=== PATIENT | female | born 1980 | race Caucasian/White ===

== ENCOUNTER → 2019-03-22 | Outpatient (CLI) | payer OTHER ==
--- NOTE | 2019-03-25 13:19 | MM ---
Reason for exam: screening (asymptomatic). Last mammogram was performed 6 years and 5 months ago. History: Family history of breast cancer in maternal cousin at age 42. Saline implants in both breasts, 2001. Physical Findings: A clinical breast exam by your physician is recommended on an annual basis and results should be correlated with mammographic findings. MG Screening Mammo Implant/CAD Bilateral CC, MLO, and ID view(s) were taken. Prior study comparison: October 30, 2012, CAD bilateral diagnostic mammogram. November 19, 2010, CAD bilateral diagnostic mammogram. The breast tissue is heterogeneously dense. This may lower the sensitivity of mammography. Bilateral retropectoral silicone implants. No significant changes when compared with prior studies. ASSESSMENT: Negative, BI-RAD 1 RECOMMENDATION: Routine screening mammogram of both breasts in 1 year.
== END | disposition home or self-care (01) ==
LOC: RADMAMWWP 15:21
PROVIDERS: ATTEND Obstetrics & Gynecology
DX: Z12.31 Encounter for screening mammogram for malignant neoplasm of breast (principal)
CPT/HCPCS: 77067

== ENCOUNTER → 2020-09-04 | Outpatient (CLI) | payer OTHER ==
--- NOTE | 2020-09-08 09:02 | MM ---
Reason for exam: screening (asymptomatic). Last mammogram was performed 1 year and 5 months ago. History: Family history of breast cancer in maternal cousin at age 42. Saline implants in both breasts, 2001. Physical Findings: A clinical breast exam by your physician is recommended on an annual basis and results should be correlated with mammographic findings. MG Screening Mammo Implant/CAD Bilateral CC, MLO, and ID view(s) were taken. Prior study comparison: March 22, 2019, bilateral MG screening mammo implant/CAD. There are scattered fibroglandular densities. Retropectoral saline implants. No significant changes when compared with prior studies. ASSESSMENT: Negative, BI-RAD 1 RECOMMENDATION: Routine screening mammogram of both breasts in 1 year.
== END | disposition home or self-care (01) ==
LOC: RADMAMWWP 13:42
PROVIDERS: ATTEND Obstetrics & Gynecology
DX: Z12.31 Encounter for screening mammogram for malignant neoplasm of breast (principal)
CPT/HCPCS: 77067

== ENCOUNTER → 2022-02-09 | Outpatient (CLI) | payer OTHER ==
--- NOTE | 2022-02-10 09:05 | MM ---
Reason for Exam: Screening (asymptomatic). Last mammogram was performed 1 year(s) and 6 month(s) ago. Patient History: Menarche at age 11. First Full-Term at age 17. 2001, Bilateral Implants. Maternal cousin had breast cancer, age 42. Last menstrual period: 01/27/2022 Risk Values: Ayala 5 year model risk: 0.5%. NCI Lifetime model risk: 7.2%. Prior Study Comparison: 10/30/2012 Bilateral Diagnostic Mammogram, [facility]. 03/22/2019 Bilateral Screening Mammogram, [facility]. 09/04/2020 Bilateral Screening Mammogram, [facility]. Tissue Density: There are scattered fibroglandular densities. Findings: Analyzed By CAD. There is no suspicious group of microcalcifications or new suspicious mass in either breast. Retropectoral saline implants redemonstrated. No significant change from prior examinations. Overall Assessment: Negative, BI-RAD 1 Management: Screening Mammogram of both breasts in 1 year. A clinical breast exam by your physician is recommended on an annual basis and results should be correlated with mammographic findings. Electronically signed and approved by: Jesus Whitley D.O.
== END | disposition home or self-care (01) ==
LOC: RADMAMWWP 12:08
PROVIDERS: ATTEND Obstetrics & Gynecology
DX: Z12.31 Encounter for screening mammogram for malignant neoplasm of breast (principal); Z80.3 Family history of malignant neoplasm of breast
CPT/HCPCS: 77063; 77067

== ENCOUNTER → 2023-08-04 | Outpatient (CLI) | payer OTHER ==
--- NOTE | 2023-08-04 16:14 | US ---
EXAMINATION TYPE: US pelvis complete transvag DATE OF EXAM: 08/04/2023 COMPARISON: NONE CLINICAL INDICATION: Female, 43 years old with history of Z12.31 SCR MAMMO N92.0 EXCESSIVE MENSTRUATI ON; Patient states she is getting an ablation soon. Patient has had heavy bleeding on her period x 13 days. . TECHNIQUE: Transvaginal (TV) and Transabdominal (TA) . Transabdominal sonographic images of the pel vis were acquired. Transvaginal sonographic images were medically necessary to better assess the fol lowing anatomy: ovaries, endometrium Date of LMP: 07/22/2023 EXAM MEASUREMENTS: Uterus: 9.0 x 7.1 x 4.4 cm Endometrial Stripe: 0.85 cm Right Ovary: 3.1 x 2.0 x 1.6 cm Left Ovary: 3.0 x 2.0 x 1.5 cm 1. Uterus: Anteverted. *Cystic cluster seen in cervix with aggregate dimension of: 1.8 x 2.3 x 1.2 cm. Hypoechoic lesion seen left uterine body myometrium: 1.8 x 1.6 x 1.5 cm. 2. Endometrium: 0.85 cm Appearance of anechoic fluid seen within uterine cavity: 2.8 x 2.6 x 0.3 c m. 3. Right Ovary: Appears wnl 4. Left Ovary: 1.3 x 1.4 x 0.7 cm thick-walled cyst. 5. Bilateral Adnexa: Appear wnl 6. Posterior cul-de-sac: Appears wnl IMPRESSION: 1. Thin fluid within the uterine cavity. Endometrial stripe thickness is 8.5 mm. 2. A 1.8 cm intramural fibroid left uterine body. 3. Cluster of cysts within the cervix with aggregate dimension measuring up to 2.3 cm. Most likely cl ustered cervical nabothian cysts. Recommend correlation for any watery vaginal discharge and with Pap smear results to exclude the less likely possibility of an adenoma malignum. 4. A 1.4 cm probable corpus luteum of the left ovary. Follow-up ultrasound in 6-8 weeks to ensure inv olution.
--- NOTE | 2023-08-07 09:30 | MM ---
Reason for Exam: Hx of breast augmentation, asymptomatic. Last mammogram was performed 1 year(s) and 5 month(s) ago. Patient History: Menarche at age 11. First Full-Term at age 17. 2001, Bilateral Implants. Maternal cousin had breast cancer, age 42. Risk Values: Ayala 5 year model risk: 0.6%. NCI Lifetime model risk: 7.1%. Prior Study Comparison: 03/22/2019 Bilateral Screening Mammogram, [facility]. 09/04/2020 Bilateral Screening Mammogram, [facility]. 02/09/2022 Bilateral MG 3D screen mammo imp/cad., [facility]. Tissue Density: The breast tissue is heterogeneously dense. This may lower the sensitivity of mammography. Findings: Analyzed By CAD. There is no suspicious group of microcalcifications or new suspicious mass in either breast. Implants are intact. Overall Assessment: Benign, BI-RAD 2 Management: Screening Mammogram of both breasts in 1 year. . Patient should continue monthly self-breast exams. A clinical breast exam by your physician is recommended on an annual basis. This exam should not preclude additional follow-up of suspicious palpable abnormalities. Note on Ayala scores and lifetime risk: 1. A Ayala score greater than 3% is considered moderate risk. If this is the case, consider specialist referral to assess eligibility for a risk reducing agent. 2. If overall lifetime risk for the development of breast cancer is 20% or higher, the patient may qualify for future screening with alternating mammogram and breast MRI. Electronically signed and approved by: Carlos Villa M.D. Radiologis
== END | disposition home or self-care (01) ==
LOC: RADUSWWP 13:42
PROVIDERS: ATTEND Obstetrics & Gynecology
DX: Z12.31 Encounter for screening mammogram for malignant neoplasm of breast (principal); D25.1 Intramural leiomyoma of uterus; N92.0 Excessive and frequent menstruation with regular cycle; N88.8 Other specified noninflammatory disorders of cervix uteri; Z98.82 Breast implant status; Z80.3 Family history of malignant neoplasm of breast
CPT/HCPCS: 76830; 76856; 77063; 77067

== ENCOUNTER 2023-08-31 06:06 | Day surgery (SDC) | payer OTHER ==
[2023-08-28 11:45] VITALS: BMI 24.3
--- NOTE | 2023-08-30 12:36 | P.HPOB ---
History of Present Illness H&P Date: 08/30/23 Chief Complaint: Menorrhagia This patient is a pleasant 43 yr female with >10 years of menorrhagia who is requesting endometrial ablation for treatment. Menses are long and heavy, but no intermenstrual bleeding. Ultrasound showed a small fibroid (1.8 cm), otherwise normal. I discussed options for treatment and is requesting trial of endometrial ablation. Review of Systems Genitourinary: Reports as per HPI, Reports menorrhagia Past Medical History Past Medical History: No Reported History Additional Past Medical History / Comment(s): 4 previous vaginal deliveries. History of Any Multi-Drug Resistant Organisms: None Reported Additional Past Surgical History / Comment(s): Bilat breast augmentation, abdominolplasty. Past Anesthesia/Blood Transfusion Reactions: No Reported Reaction Smoking Status: Never smoker - Past Family History Mother Family Medical History: CVA/TIA Additional Family Medical History / Comment(s): grandmother Medications and Allergies Home Medications Medication Instructions Recorded Confirmed Type Naproxen 400 mg PO Q8H PRN 08/28/23 08/28/23 History Vit No.179/Iron/Folic 1 each PO QAM 08/28/23 08/28/23 History [ Tablet] Allergies Allergy/AdvReac Type Severity Reaction Status Date / Time surgical tape Allergy "red-swelli Uncoded 08/28/23 11:22 ng" Exam - OBG Physical Exam Abdomen: bowel sounds normal, no diffuse tenderness, no bruit present, no guarding noted, no hepatomegaly, no splenomegaly, no mass Vulva: both: normal Vagina: normal moisture Cervix: no lesion, no discharge Uterus: normal size, normal contour Results Ultrasound as above Assessment and Plan Assessment: This is a pleasant 43 yr female with longstanding menorrhagia and negative evaluation. She is requesting trial of endometrial ablation for treatment. Plan is to proceed with a hysteroscopy, D&C, and Novasure endometrial ablation. I have discussed this surgery and risks: infection, bleeding, possible uterine perforation and/or thermal injury. All of her questions were answered and a written consent obtained. (1) Menorrhagia Status: Acute Code(s): N92.0 - EXCESSIVE AND FREQUENT MENSTRUATION WITH REGULAR CYCLE SNOMED Code(s): 521350178
[~2023-08-31 06:06] MED LIST: LACTATED RINGERS 1,000 ML IV SCH; Pre Op ABX Message 1 EACH MISC MISCELLANE ONE
[2023-08-31] MEDS ORDERED: HYDROmorphone 0.5 MG/0.5 ML SYRINGE IVP PRN (07:00)
[2023-08-31] MEDS: ONDANSETRON 4 MG/2 ML VIAL IVP ONE (07:04)
[2023-08-31] MEDS: LACTATED RINGERS 1,000 ML IV ONE (07:04)
[2023-08-31] MEDS: DEXAMETHASONE SOD PHOSPHATE 4 MG/ML 1 ML VIAL IV ONE (07:04)
[2023-08-31 07:22] VITALS: TEMP 97.2
[2023-08-31] MEDS ORDERED: KETOROLAC 15 MG/ML 1 ML VIAL ONE (07:26)
[2023-08-31] MEDS ORDERED: LIDOCAINE 1% INJ 10MG/ML (20 ML MDV) ONE (07:26)
[2023-08-31] MEDS ORDERED: fentaNYL (PF) 50 MCG/ML 2 ML AMP ONE (07:26)
[2023-08-31] MEDS ORDERED: PROPOFOL 10 MG/ML 20 ML VIAL IV ONE (07:26)
[2023-08-31] MEDS ORDERED: MIDAZOLAM 2 MG/2 ML VIAL ONE (07:26)
--- NOTE | 2023-08-31 08:07 | P.OP ---
Date of Procedure: 08/31/23 Preoperative Diagnosis: Menorrhagia Postoperative Diagnosis: Same Procedure(s) Performed: #1: Hysteroscopy. #2: Dilation and curettage. #3: NovaSure endometrial ablation Anesthesia: other (LMA) Surgeon: Julio Maldonado Pathology: other (Uterine curettings) Condition: stable Disposition: PACU Indications for Procedure: Please see dictated H&P for intimate details of this patient's admission. In brief summary this is a pleasant 43-year-old 4 para 4 female long- standing menorrhagia who is requesting trial of NovaSure endometrial ablation for treatment. Patient understands this surgery and risks and risks of infection, bleeding, possible uterine perforation, and/or thermal injury. All the patient's questions are answered and written consent is obtained. Operative Findings: This patient had a normal-appearing endometrial cavity. Description of Procedure: This patient is taken to the operating room where she is laid in the supine position. She subsequent undergoes general anesthesia without incident. With an adequate level of anesthesia she's placed in dorsal lithotomy position. She has a vaginal and perineal prep and drape. Examination under anesthesia shows a mid position uterus of normal size. A weighted speculum was placed in the posterior vagina. I then drained the bladder for approximately 50 mL of clear urine. The anterior lip of the cervix was grabbed with an Allis clamp. The uterus is then sounded to 8.5 cm. Gentle dilation is then done to allow the hysteroscope easily uterine cavity. Hysteroscopy is performed with saline solution the uterine cavity appears normal and is measured a length of 6.0 cm. With this done the hysteroscope was removed. The cervix is dilated more to allow a sharp curette easily uterine cavity. A gentle but thorough 4 quadrant curettage is then done. NovaSure device is then opened and appears to be intact. It is set at a length of 6.0 cm and opens up to a width of 3.7 cm. After passing the cavity integrity test, NovaSure device is then enabled and complete cauterization is noted with excellent results. NovaSure device is then removed. Hysteroscopy is then performed and the cavity appears to be ablated up to the endocervix. This completed the procedure is ended. The Allis clamp and weighted speculum were removed. All counts are correct 3. There are no complications. Patient is awakened from anesthesia and taken recovery room in satisfactory condition.
[2023-08-31 08:59] VITALS: BP 110/73; PULSE 71
[2023-08-31 09:00] VITALS: RESP 17
== END 2023-08-31 08:56 | disposition home or self-care (01) ==
LOC: OR 06:06
PROVIDERS: ATTEND Obstetrics & Gynecology
DX: N92.0 Excessive and frequent menstruation with regular cycle (principal); Z82.3 Family history of stroke; Z79.899 Other long term (current) drug therapy
CPT/HCPCS: 81025; 88305; 58563; J2250; J1100; J2405; J2001; J3010; J1885; J2704